=== PATIENT | male | born 1975 | race American Indian/Alaskan Native ===

== ENCOUNTER 2021-06-03 06:41 | Emergency (ER) | payer BC ==
[~2021-06-03] VITALS: Ht 172.7 cm; Wt 106.8 kg
[2021-06-03 06:47] VITALS: BP 140/89; TEMP 98.8
[2021-06-03 07:35] VITALS: PULSE 70
== END 2021-06-03 07:35 | disposition home or self-care (01) ==
LOC: COL.ER 06:41
DX: R51.9 Headache, unspecified (principal); F17.200 Nicotine dependence, unspecified, uncomplicated